=== PATIENT | female | born 1985 | race Caucasian/White ===

== ENCOUNTER → 2020-11-06 | Outpatient (CLI) | payer OTHER ==
[~2020-11-06] MED LIST: FEOSOL45 MG; IBU600 MG PO; PERCOCET 325 MG1 TA2 PO; PRENATAL MVI; PRILOSEC10 MG PO
== END ==
LOC: COL.CARD 09:59
DX: R00.0 Tachycardia, unspecified (principal)

== ENCOUNTER → 2020-11-27 | Outpatient (CLI) | payer OTHER | LOC: ZCOL.LAB 10:56 | DX: Z20.822 Contact with and (suspected) exposure to COVID-19 (principal) ==

== ENCOUNTER 2020-12-07 06:23 | Inpatient (IN) | payer OTHER ==
[~2020-12-07] VITALS: Ht 162.6 cm; Wt 81.8 kg
[2020-12-07] VITALS (65 sets, daily range): BP systolic 109–150; BP diastolic 68–98; PULSE 57–102; TEMP 98–98.6
--- NOTE | 2020-12-07 06:40 | NUR ---
Pt arrives on unit ambulatory with spouse for IOL. Changed into a clean gown. EFM and toco applied. VSS. Denies vaginal bleeding, LOF, regular ctx and reports GFM. IV started in LW. Labs drawn. LR infusing. Admission assessment completed. Consents signed. Pt updated on POC. Bed locked in low position. Call light within reach. No questions or concerns at this time. 0732- Roles at bedside. SVE per provider /-. Attempt at AROM. No fluid noted with exam. Pericare performed.
[2020-12-07] MEDS ORDERED: FEOSOL45 MG (07:02)
[2020-12-07] MEDS ORDERED: PRENATAL MVI (07:02)
[2020-12-07] MEDS ORDERED: PRILOSEC10 MG PO (07:03)
[2020-12-07 07:34] LABS: BASO % 0.4 % (0.0-2.0); EOS # 0.1 (0.0-0.7); EOS % 0.9 % (0-4.0); GRAN # 7.1 (1.4-6.5); GRAN % 74.7 % (42.2-75.2); HEMOGLOBIN 11.6 g/dl (12.5-16.0); LYMPH # 1.7 (1.2-3.4); LYMPH % 17.5 % (20.0-51.0); MEAN CELL VOLUME 84 fl (80.0-100.0); MEAN CORPUSCULAR HEMOGLOBIN 27 pg (27.0-31.0); MEAN CORPUSCULAR HGB CONC 32 g/dl (33.0-37.0); MEAN PLATELET VOLUME 10.6 fl (7.4-10.4); MONO # 0.5 (0.1-0.6); MONO % 5.7 % (1.7-9.3); PLATELET COUNT 315 K/mm3 (130-400); RED BLOOD COUNT 4.36 M/mm3 (4.10-5.30); REDCELL DISTRIBUTION WIDTH-CV 14.7 % (11.5-14.5)
[2020-12-07 07:35] LABS: HEMATOCRIT 36.8 % (37.0-47.0)
--- NOTE | 2020-12-07 18:30 | NUR ---
Report received, care assumed.
--- NOTE | 2020-12-07 21:00 | NUR ---
Dr. Hammer at bedside, reviews FHR tracing, SVE anterior lip. Plan of care reviewed. Dr. Hammer remains on unit.
--- NOTE | 2020-12-07 22:30 | NUR ---
Dr. Hammer remains on unit. Reviews FHR tracing. 2220 Dr. Hammer to patient room, SVE - complete. Plan of care reviewed and patient instructed on pushing.
[2020-12-08] VITALS (19 sets, daily range): BP systolic 95–154; BP diastolic 52–90; PULSE 70–115; TEMP 97.7–98.6
--- NOTE | 2020-12-08 | NUR ---
Dr. Hammer remains on unit. Patient continues to push with contractions. Dr. Hammer reviews FHR tracing and evaluates pushing as needed.
--- NOTE | 2020-12-08 00:30 | NUR ---
Roles at bedside, plan of care discussed including possible forceps assisted delivery. Patient agrees. FURRIER APPRENTICE and electrician technician notified and close by. Patient prepped for delivery.
--- NOTE | 2020-12-08 00:57 | NUR ---
Patient prepped for delivery and continues to push with contractions. 0050 Forceps placed 0053 Patient pushing 0057 Forceps assisted delivery of viable female by Dr. Hammer. to the care of the nursery RN. 0101 Spontnaeous delivery of placenta by Dr. Hammer. Pitocin infusing at 333ml/hr. Fundus firm, lochia WNL. Repair of side wall lacerations by Dr. Hammer.
--- NOTE | 2020-12-08 02:15 | NUR ---
Patient calls out with c/o feeling dizzy. Emesis x1. Blood pressure 95/52. Virgil SCHMITZ Dr. Roles on unit and orders recieved for Hespan IV. Hespan infusing per orders. Patient laying down flat, at side. Plan of care discussed.
--- NOTE | 2020-12-08 05:45 | NUR ---
Patient up to bathroom with 1 assist. Voids without difficulty, urine collected outside of hat so void is unmeasured. Tomato sized clot noted in toilet after void. Patient back to bed, fundus firm, lochia WNL without clots. Plan of care reviewed.
--- NOTE | 2020-12-08 09:51 | NUR ---
Initial visit; Parents thanked Hydraulic Rock Drill Operator for offering Congratulations and God's blessings for the of their daughter. Hydraulic Rock Drill Operator thanked family for choosing [facility].
[2020-12-08 11:25] LABS: HEMATOCRIT 23.4 % (37.0-47.0); HEMOGLOBIN 7.8 g/dl (12.5-16.0)
[2020-12-09 00:30] VITALS: BP 118/73; PULSE 94; TEMP 97.4
[2020-12-09 08:00] VITALS: BP 119/84; PULSE 86; TEMP 97.4
[2020-12-09] MEDS ORDERED: PERCOCET 325 MG1 TA2 PO (09:03)
[2020-12-09] MEDS ORDERED: IBU600 MG PO (09:03)
[2020-12-09 12:45] VITALS: BP 123/80; PULSE 91; TEMP 98
[2020-12-09 17:00] VITALS: BP 125/81; PULSE 93; TEMP 97.7
[2020-12-09 20:00] VITALS: BP 121/76; PULSE 99; TEMP 98.1
[2020-12-10 08:00] VITALS: BP 115/79; PULSE 83; TEMP 97.7
== END 2020-12-10 13:00 | disposition home or self-care (01) | DRG 806 ==
LOC: LDR 06:23 → OB 06:23
PROVIDERS: ADMIT Obstetrics & Gynecology
PROC: 10E0XZZ Delivery of Products of Conception, External Approach (ICD-10-PCS; principal; 2020-12-08)
PROC: 10E0XZZ Delivery of Products of Conception, External Approach (ICD-10-PCS; 2020-12-08)
PROC: 0UQGXZZ Repair Vagina, External Approach (ICD-10-PCS; 2020-12-08)
DX: O48.0 Post-term pregnancy (principal); O71.4 Obstetric high vaginal laceration alone; Z37.0 Single live birth; Z3A.40 40 weeks gestation of pregnancy; O75.81 Maternal exhaustion complicating labor and delivery; Z3A.41 41 weeks gestation of pregnancy; O76 Abnormality in fetal heart rate and rhythm complicating labor and delivery
CPT/HCPCS: J2405; J2590; J7120

== ENCOUNTER → 2020-12-16 | Outpatient (CLI) | payer OTHER ==
--- NOTE | 2020-12-16 15:49 | NUR ---
Pt, Emmanuelle Kelsey, presents for outpatient consult with 8 day old baby girl, Jennifer Kelsey, for a evaluation. She is accompanied by her spouse, Caden. Jennifer was born on [birth year] and weighed 8#4.3oz (3750 gms). Discharge weight was 7#10oz (3470 gms) on 12/10/20. Pt reports Jennifer weighed 7#13oz at her first doctor appt on 12/11/20. Because of difficult latching the family has been pumping and bottle feeding. They report intake by bottle two days ago was ~11oz, and yesterday was ~14oz. Pt reports pumping 3-5oz every ~5 hours, collecting 12.5oz two days ago and 16.75oz yesterday. Today Jennifer weighs 7#13.5oz (3556 gms), and is at 5% loss from . At this appt. Jennifer would not directly latch to the breast, a nipple sheild was provided and she seemed to do fair to good work on the right breast for about 15 minutes. She demonstrated a 30 gm gain from the right. On the left breast she has a little trouble getting started, but eventually appeared to be swallowing and even had milk leaking from her mouth. After nursing the left side she only had an additional weight gain of 2gms. LC bottle fed Jennifer with a little difficulty getting her to establish and stay in a strong suck rhythm. She evenutally drinks 42ml of EBM, for a total gain of 74ml (2.5oz). Family states with bottle feeding Jennifer starts to spit milk out of her mouth while the bottle is still in her mouth. Disucussed burping and LC demonstrates some bottle feeding techniques. Jennifer has no spit up during this consult. Pt expresses concern that she cannot adequately breastfeed, finding latching difficult; even with the nipple shield she feels she need extra hands. Once Jennifer's expected weight gain and intake needs are reviewed, pt becomes more overwhelmed, stating she is not sure if she can pump more often than what she is now, as well as take care of herself. LC evaluates oral anatomy, does not feel like a tongue tie is an issue though Jennifer does not demonstrate tongue extension. She does have a high anteriour palate that may make compression of the breast or bottle nipple difficult, causing low milk transfer. LC provides suggestions such as getting extra pump parts so she does not have to wash as often, and a hands free bra so she can mulitask while pumping. Pt also reassured to find the feeding plan that allows her to manage what she can and feel like she is taking good care of Jennifer and herself is the primary goals. Reviewed what that may look like for her family. Mild stridor noted when Jennifer is laying down for diaper change and dressing, family states they hear it a lot at night. Advised to monitor for worsening, especially with feedings. Notify Dr. Shah if worsening noted. POC: Increase feeding volume to ~24 oz per 24 hours to establish adequate weight gain. Increase pumping if able, and add formula as needed. F/U: If Jennifer does not tolerate the increase in feeding volumes, has more emesis, contact Dr. Shah for evaluation, as well as if stridor worsens. This LC is unavailable until 12/30/20. Questions invited and answered.
== END ==
LOC: LAC 11:11
DX: Z39.1 Encounter for care and examination of lactating mother (principal); Z71.89 Other specified counseling